=== PATIENT | female | born 1995 | race African-American/Black ===

== ENCOUNTER 2016-07-07 17:40 | Emergency (ER) | payer MEDICAID ==
[~2016-07-07] VITALS: Ht 157.5 cm; Wt 71.9 kg
[~2016-07-07 17:40] MED LIST: PREN29TA PO
[2016-07-07 17:46] VITALS: BP 99/72; PULSE 100; RESP 15; TEMP 98.6; O2SAT 100
[2016-07-07 18:14] LABS: BLOOD, URINE NEG (NEG); GLUCOSE,URINE NEG (NEG); KETONE, URINE NEG (NEG); NITRITE,URINE NEG (NEG)
[2016-07-07 18:27] LABS: URINE COLOR YELLOW (YELLW/STRAW)
[2016-07-07 18:28] LABS: COMMENT (UR) CULT NOT INDICATED; CULTURE IF INDICATED CULT NOT INDICATED; RBC, URINE 0-3 /hpf (0-3); SQUAMOUS EPITHELIAL CELL URINE 0-5 /hpf (0-5); WBC, URINE 0-2 /hpf (0-5)
[2016-07-07] MEDS ORDERED: LIDOCAINE HCL 1% 50 ML VIAL IM ONE (19:00)
[2016-07-07] MEDS ORDERED: cefTRIAXone 250 MG VIAL IM ONE (19:00)
[2016-07-07] MEDS ORDERED: AZITHROMYCIN PWD FOR SUSP 1 GM PACKET PO ONE (19:00)
[2016-07-07] MEDS ORDERED: MIRA33504 PO (19:02)
--- NOTE | 2016-07-07 19:09 | PD ---
HPI Chief Complaint: Complaint Time Seen by Provider: 19:04 Travel History International Travel<30 days: No Contact w/Intl Traveler<30days: No Traveled to known affect area: No History of Present Illness HPI 21-year-old female that presents to the ED for evaluation of bladder pain. Per patient she is about 4 months . Per patient she has had no issues with the . Per patient she's had a recent ultrasound that told her that she was a boy. Patient should having some vaginal discharge as well as constipation and dysuria and polyuria. She denies any chest pain or shortness of breath. No nausea or vomiting. Per patient the pain is mainly on the right side of the pelvic area. Patient denies any STD exposure. Patient denies any rectal pain. Patient hasn't taken anything for this other than some over-the- counter remedy for constipation. PFSH Past Medical History Anemia: Yes Asthma: Yes Anxiety: Yes Depression: Yes Heart Rhythm Problems: Yes (murmur) Cardiovascular Problems: Yes (HEART MURMUR) Diminished Hearing: No Immunizations Current: Yes Tetanus Vaccination: < 5 Years Influenza Vaccination: No ?: LMP: 03/14/16 : 4 Para: 1 Miscarriage: 1 : 1 Past Surgical History Section: Yes ( ) Gynecologic Surgery: Yes ( ) Family History Family Hypercholesterolemia: Yes Social History Alcohol Use: Yes (social) Tobacco Use: No Substance Use: No Allergies-Medications (Allergen,Severity, Reaction): Coded Allergies: *MDRO Multi-Drug Resistant Organism (Verified Allergy, Unknown, 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 HEAD: Atraumatic. Normocephalic. EYES: Pupils equal and round. No scleral icterus. No injection or drainage. ENT: No nasal bleeding or discharge. Mucous membranes pink and moist. NECK: Trachea midline. No JVD. CARDIOVASCULAR: Regular rate and rhythm. RESPIRATORY: No accessory muscle use. Clear to auscultation. Breath sounds equal bilaterally. GASTROINTESTINAL: Abdomen soft, non-tender, abdomen about 18 weeks. Hepatic and splenic margins not palpable. Pelvic exam: Done with female nurse present. Patient does have some whitish fluid coming out of the vaginal wall. Almost looks like milk. Patient has no cervical tenderness. No obvious vaginal mass. No lymphadenopathy. Adnexa cannot be felt but the patient does have a uterus. MUSCULOSKELETAL: Extremities without clubbing, cyanosis, or edema. No obvious deformities. Patient has full range of motion of the upper and lower extremities bilaterally. Pupils pulses bilaterally. NEUROLOGICAL: Awake and alert. No obvious cranial nerve deficits. Motor grossly within normal limits. Five out of 5 muscle strength in the arms and legs. Normal speech. PSYCHIATRIC: Appropriate mood and affect; insight and judgment normal. Data Data Last Documented VS Vital Signs Date Time Temp Pulse Resp B/P Pulse Ox O2 Delivery O2 Flow Rate FiO2 07/07/16 17:46 98.6 100 15 99/72 100 Orders Urinalysis - C+S If Indicated (07/07/16 17:55) Gc And Chlamydia Pcr (07/07/16 18:01) Wet Prep Profile (07/07/16 18:01) Ed Poc Ultrasound (07/07/16 ) Azithromycin Powd Pack (Zithromax Powd P (07/07/16 19:00) Ceftriaxone Inj (Rocephin Inj) (07/07/16 19:00) Lidocaine 1% Inj (50 Ml) (Xylocaine 1% I (07/07/16 19:00) Labs Laboratory Tests Test 07/07/16 07/07/16 17:58 18:30 Urine Color YELLOW Urine Turbidity SLIGHT Urine pH 7.0 Urine Specific Wells 1.016 Urine Protein NEG mg/dL Urine Glucose (UA) NEG mg/dL Urine Ketones NEG mg/dL Urine Occult Blood NEG Urine Nitrite NEG Urine Bilirubin NEG Urine Leukocyte Esterase NEG Urine RBC 0-3 /hpf Urine WBC 0-2 /hpf Urine Squamous Epithelial 0-5 /hpf Cells Urine Amorphous Sediment FEW Microscopic Urinalysis Comment CULT NOT INDICATED Clue Cells (Wet Prep) NONE SEEN Vaginal Trichomonas (Wet Prep) NONE SEEN Vaginal Yeast (Wet Prep) NONE SEEN MDM Medical Decision Making Medical Screen Exam Complete: Yes Emergency Medical Condition: Yes Medical Record Reviewed: Yes Interpretation(s) Urine negative for UTI. Wet prep was negative Differential Diagnosis IUP versus vaginal discharge versus vaginitis versus UTI versus and pelvic pain Narrative Course 21-year-old female that presents to the ED for evaluation of pelvic pain. Patient was properly examined and was found to have signs and symptoms consistent with what appears to be at this moment IUP with vaginal discharge. Patient also has sensation. Physical exam is reassuring. Bowels are within normal limits. My attending and I performed an ultrasound at the bedside that showed 17weeks intrauterine fetus with good heart tones. Pelvic exam did reveal some whitish milky discharge concerning for STD. Patient was given shot of Rocephin and azithromycin. Patient was instructed to follow closely with OB/ FEATHER BALER. In regards to constipation patient was given recommendation of increasing fluids and dietary fiber as well as given a prescription for lactulose which per up-to-date should be safe during . Told to stop taking any other medication. See ED worsening symptoms. Diagnosis Primary Impression: Vaginal discharge Additional Impressions: Constipation Qualified Code: K59.00 - Constipation, unspecified constipation type Qualified Code: Z3A.17 - 17 weeks gestation of Patient Instructions: General Instructions Additional Instructions: Take medication as prescribed. Increased or liquids and fiber. Follow with [facility] [employer]. See ED for any worsening symptoms. Only use a prescription if absolutely needed for constipation management. Med/Other Pt SpecificInfo: Prescription(s) given Scripts Lactulose (Encephalopathy) Liq (Lactulose Liq)19 Gm/15 Ml Soln20 Mg PO Q6HR PRN (CONSTIPATION) 7 Days Prov:Kyle Tirado MD 07/07/16 Disposition: 01 DISCHARGE HOME Condition: Stable Stefan Masters Jul 07, 2016 19:09
[2016-07-07] MEDS ORDERED: LACT10SO27 PO (19:12)
[2016-07-07 19:27] VITALS: BP 101/84; PULSE 90; RESP 18; O2SAT 100
[2016-07-08 01:45] LABS: CHLAMYDIA PCR NOT DETECTED (NOT DETECT); NEISSERIA PCR NOT DETECTED (NOT DETECT)
== END 2016-07-07 19:39 | disposition home or self-care (01) ==
LOC: PHEFT 17:40 → PHED 19:39
DX: O26.92 Pregnancy related conditions, unspecified, second trimester (principal); N89.8 Other specified noninflammatory disorders of vagina; K59.00 Constipation, unspecified; Z3A.17 17 weeks gestation of pregnancy
CPT/HCPCS: 81001; 87210; 87491; 87591; 99283

== ENCOUNTER 2016-07-25 11:29 | Emergency (ER) | payer MEDICAID ==
[~2016-07-25 11:29] MED LIST changes: +LACT10SO27 PO
[2016-07-25 11:30] VITALS: BP 131/72; PULSE 111; RESP 15; TEMP 98.1; O2SAT 98
[2016-07-25] MEDS ORDERED: ACETAMINOPHEN 500 MG CPLT PO ONE (12:30)
--- NOTE | 2016-07-25 12:37 | PD ---
HPI Chief Complaint I have migraine headaches Date Seen: Jul 25, 2016 Time Seen: 12:20 Travel History International Travel<30 Days: No Contact w/Intl Traveler<30Days: No Known Affected Area: No History of Present Illness HPI 21-year-old 001 at 20 weeks of gestation, E DD 12/12/16, patient presents to OB ED complaining of episode of migraine headaches, she denies cramping, contraction, vaginal bleeding, leakage of fluid. She reports presence of movements. care is with Dr Taylor, care is significant for migraine headaches and anxiety. Para: 1 : 2 Miscarriage: 0 : 0 History Past Medical History Narrative Medical Anxiety and migraine headaches Obstetric History Obstetric History Spontaneous vaginal delivery times one Past Surgical History Narrative Surgical Denies Surgical History: No Previous Surgery Family History Narrative Family History Grandmother with hypertension and diabetes Social History Alcohol Use: No Tobacco Use: No Substance Abuse: No Allergies-Medications (Allergen,Severity, Reaction): Coded Allergies: *MDRO Multi-Drug Resistant Organism (Verified Allergy, Unknown, 07/25/16) MRSA Home Meds Active Scripts Vit-Iron Carbonyl ( Plus Iron 29-1 mg)1 Tab Tab1 Tab PO DAILY #30 TAB Ref 0 Prov:Alena Aguilar 05/19/16 Discontinued Scripts Lactulose (Encephalopathy) Liq (Lactulose Liq)19 Gm/15 Ml Soln20 Mg PO Q6HR PRN (CONSTIPATION) 7 Days Prov:Kyle Tirado MD 07/07/16 Review of Systems Except as stated in HPI: all other systems reviewed are Neg HENT: Headaches (migraine headaches) Physical Exam Narrative GENERAL: Well-nourished, well-developed patient. SKIN: Warm and dry. HEAD: Normocephalic and atraumatic. EYES: No scleral icterus. No injection or drainage. ENT: No nasal drainage noted. Mucous membranes pink. Airway patent. NECK: Supple, trachea midline. No JVD. CARDIOVASCULAR: Regular rate and rhythm without murmurs, gallops, or rubs. RESPIRATORY: Breath sounds equal bilaterally. No accessory muscle use. BREASTS: Bilateral exam showed no masses , no retractions, no nipple discharge. ABDOMEN/GI: Abdomen soft, gravid, non-tender, bowel sounds present, no rebound, no guarding Gravid to 20 weeks size Fundal Height: 20 cm GENITOURINARY: External Genitalia: intact and normal in appearance BUS glands: Normal Cervix: closed, long, posterior Dilatation: Closed Effacement: 80% Station: -3 Presentation: Cephalic Membranes: Intact Uterine Contractions: Heart Tones by Doppler is 150's: EXTREMITIES: No cyanosis or edema. BACK: Nontender without obvious deformity. No CVA tenderness. NEUROLOGICAL: Awake and alert. Motor and sensory grossly within normal limits. Five out of 5 muscle strength in all muscle groups. Normal speech. Data Data Vital Signs Reviewed: Yes Orders Vital Signs (Adult) .ON ADMISSION (07/25/16 12:21) ^ Labor Status (07/25/16 12:21) ^ Non Stress Test (07/25/16 12:21) ^ Hydration (07/25/16 12:21) Acetaminophen (Tylenol) (07/25/16 12:30) MDM Medical Record Reviewed: Yes Diagnosis Diagnosis: Primary Impression: 20 weeks gestation of Additional Impression: Migraine headache Disposition: DISCHARGE HOME Condition: Stable Patient Instructions: General Instructions Additional Instructions: Patient is given a prescription for Tylenol 650 mg orally every 6 hours as needed for headaches, she is instructed to return to labor and delivery if increased symptoms, cramping, contractions, leakage of fluids, vaginal bleeding or decreased movements. Drink plenty of fluids. Monitor kick counts. Keep your office appointment as scheduled. Take your medication as prescribed. Departure Forms: Tests/Procedures Avila Blank MD Jul 25, 2016 12:37
== END 2016-07-25 12:46 | disposition home or self-care (01) ==
LOC: HOBED 11:29
DX: O26.892 Other specified pregnancy related conditions, second trimester (principal); G43.909 Migraine, unspecified, not intractable, without status migrainosus; Z3A.20 20 weeks gestation of pregnancy
CPT/HCPCS: 99284

== ENCOUNTER 2017-03-16 06:10 | Emergency (ER) | payer MEDICAID ==
[~2017-03-16] VITALS: Ht 157.5 cm; Wt 71.0 kg
[~2017-03-16 06:10] MED LIST changes: -LACT10SO27 PO
[2017-03-16 06:13] VITALS: BP 121/56; PULSE 90; RESP 16; TEMP 98.9; O2SAT 99
[2017-03-16] MEDS ORDERED: ERYTOIN10 RIGHT EYE (07:13)
--- NOTE | 2017-03-16 07:13 | PD ---
HPI . right eye infection Chief Complaint: Eye Problems/Injury Time Seen by Provider: 07:12 Travel History International Travel<30 days: No Contact w/Intl Traveler<30days: No Traveled to known affect area: No History of Present Illness HPI 21-year-old female here with complaints of right eye infection. Patient tells me that she frequently gets bacterial conjunctivitis and her symptoms go same. She is requesting antibiotic treatment for this. She denies any vision changes. She admits to some slight drainage and tells me that her symptoms started yesterday. She has no other complaints. PFSH Past Medical History Anemia: Yes Asthma: Yes Anxiety: Yes Depression: Yes Heart Rhythm Problems: Yes (murmur) Cardiovascular Problems: Yes (HEART MURMUR) Developmental Delay: No Diminished Hearing: No Immunizations Current: Yes ?: Not LMP: 02/15/17 : 4 Para: 1 Miscarriage: 1 : 1 Past Surgical History Section: Yes ( ) Gynecologic Surgery: Yes ( ) Family History Family Hypercholesterolemia: Yes Social History Alcohol Use: No Tobacco Use: No Substance Use: No Allergies-Medications (Allergen,Severity, Reaction): Coded Allergies: *MDRO Multi-Drug Resistant Organism (Verified Allergy, Unknown, 03/16/17) MRSA Reported Meds & Prescriptions Reported Meds & Active Scripts Active No Active Prescriptions or Reported Medications Review of Systems General / Constitutional: No: Fever Eyes: Positive: Redness, Tearing, No: Visual changes HENT: No: Headaches Cardiovascular: No: Chest Pain or Discomfort Respiratory: No: Shortness of Breath Gastrointestinal: No: Abdominal Pain Genitourinary: No: Dysuria Musculoskeletal: No: Pain Skin: No Rash Neurologic: No: Weakness Psychiatric: No: Depression Endocrine: No: Polydipsia Hematologic/Lymphatic: No: Easy Bruising Physical Exam Narrative GENERAL: AAO x 3, no acute distress, Well-nourished, well-developed patient. SKIN: Warm and dry. No visible rashes or bruising. HEAD: Normocephalic and atraumatic. EYES: No scleral icterus. No injection or drainage. EOM intact, PERRLA, mild erythema of right eye ENT: No nasal drainage noted. Mucous membranes pink. Airway patent. NECK: Supple, trachea midline. No JVD. CARDIOVASCULAR: Regular rate and rhythm without murmurs, gallops, or rubs. RESPIRATORY: Breath sounds equal bilaterally. No accessory muscle use. No rhonchi or rales. GASTROINTESTINAL: visual inspection normal EXTREMITIES: No cyanosis or edema. BACK: No obvious deformity. NEURO: CN II-12 intact, PSYCH: AAO x 3, normal affect. Data Data Last Documented VS Vital Signs Date Time Temp Pulse Resp B/P (MAP) Pulse Ox O2 Delivery O2 Flow Rate FiO2 03/16/17 06:13 98.9 90 16 121/56 (77) 99 Orders Orders Proparacaine 0.5% Opth Soln (Alcaine 0.5 (03/16/17 07:15) MDM Medical Decision Making Medical Screen Exam Complete: Yes Emergency Medical Condition: Yes Medical Record Reviewed: Yes Differential Diagnosis bacterial conjunctivitis, less likely fb of eye, less likely acute angle glaucoma Narrative Course 21 yr old female here requesting antibiotics for bacterial conjunctivitis. She has had this in the past. On exam there is only some slight erythema of right eye. Patient is and I offered eye staining. She declined stating this is her normal bacterial conjunctivitis. Advised f/u with ophthalmology Diagnosis Primary Impression: Acute bacterial conjunctivitis of right eye Referrals: Charge Nurse Patient Instructions: General Instructions Additional Instructions: Please return to emergency department if your symptoms return or worsen. Follow up with your primary care provider. Take medications as prescribed. Med/Other Pt SpecificInfo: Prescription(s) given Scripts Erythromycin Opth Oint (Erythromycin Opth Oint) 5 Mg/Gm Oint 1 APPLIC RIGHT EYE BID for Infection for 5 Days, #1 TUBE 0 Refills Prov: Kalpana Carmona MD 03/16/17 Disposition: 01 DISCHARGE HOME Condition: Stable Miladys Roach Mar 16, 2017 07:13
[2017-03-16] MEDS ORDERED: PROPARACAINE HCL 0.5% OPHT SOLN 15 ML BTL EACH EYE ONE (07:15)
== END 2017-03-16 07:32 | disposition home or self-care (01) ==
LOC: NEPD 06:10
DX: H10.31 Unspecified acute conjunctivitis, right eye (principal)
CPT/HCPCS: 99283

== ENCOUNTER 2017-03-29 18:41 | Emergency (ER) | payer MEDICAID ==
[~2017-03-29] VITALS: Ht 157.5 cm; Wt 70.0 kg
[~2017-03-29 18:41] MED LIST changes: +ERYTOIN10 RIGHT EYE; -PREN29TA PO
[2017-03-29 18:43] VITALS: BP 135/62; PULSE 115; RESP 16; TEMP 98.2; O2SAT 98
[2017-03-29] MEDS ORDERED: PERM5CRE11 TOPICAL (19:35)
--- NOTE | 2017-03-29 19:35 | PD ---
HPI Chief Complaint: Hotel Reservationist Problem/Complaint Time Seen by Provider: 19:32 Travel History International Travel<30 days: No Contact w/Intl Traveler<30days: No Traveled to known affect area: No History of Present Illness HPI 21-year-old female presents to emergency department for evaluation of skin lesions. They're pruritic in nature. Patient's children and best friend have been diagnosed with scabies. She was advised to come and get treatment. Denies any other new exposures. No fever or chills. In addition to this, the patient states that her boyfriend recently tested positive for gonorrhea and chlamydia. She would like treated for this. She denies any abdominal pain. She has had no increase or change in vaginal discharge. She has no other symptoms to report. PFSH Past Medical History Anemia: Yes Asthma: Yes Anxiety: Yes Depression: Yes Heart Rhythm Problems: Yes (murmur) Cardiovascular Problems: Yes (HEART MURMUR) Developmental Delay: No Diminished Hearing: No Immunizations Current: Yes ?: Not : 4 Para: 1 Miscarriage: 1 : 1 Past Surgical History Section: Yes ( ) Gynecologic Surgery: Yes ( ) Family History Family Hypercholesterolemia: Yes Social History Alcohol Use: No Tobacco Use: No Substance Use: No Allergies-Medications (Allergen,Severity, Reaction): Coded Allergies: *MDRO Multi-Drug Resistant Organism (Verified Allergy, Unknown, 03/16/17) MRSA Reported Meds & Prescriptions Reported Meds & Active Scripts Active Elimite Topical (Permethrin) 5% Cream 1 Applic TOPICAL ONCE Erythromycin Opth Oint 5 Mg/Gm Oint 1 Applic RIGHT EYE BID 5 Days Review of Systems Except as stated in HPI: all other systems reviewed are Neg Physical Exam Narrative GENERAL: Well-nourished, well-developed female patient, in no acute distress SKIN: Focused skin assessment warm/dry. Papules scattered on the upper extremities and in the webbing of the bilateral hands. Also has some on her thighs. HEAD: Normocephalic. EYES: No scleral icterus. No injection or drainage. NECK: Supple, trachea midline. No JVD or lymphadenopathy. CARDIOVASCULAR: Regular rate and rhythm without murmurs, gallops, or rubs. RESPIRATORY: Breath sounds equal bilaterally. No accessory muscle use. GASTROINTESTINAL: Abdomen soft, non-tender, nondistended. No guarding. No rebound tenderness. MUSCULOSKELETAL: No cyanosis, or edema. BACK: Nontender without obvious deformity. No CVA tenderness. Data Data Last Documented VS Vital Signs Date Time Temp Pulse Resp B/P (MAP) Pulse Ox O2 Delivery O2 Flow Rate FiO2 03/29/17 18:43 98.2 115 16 135/62 (86) 98 Orders Orders Ceftriaxone Inj (Rocephin Inj) (03/29/17 19:45) Azithromycin (Zithromax) (03/29/17 19:45) MDM Medical Decision Making Medical Screen Exam Complete: Yes Emergency Medical Condition: Yes Medical Record Reviewed: Yes Differential Diagnosis Scabies versus contact dermatitis versus folliculitis STD versus STD exposure versus normal exam Narrative Course 21-year-old female presents to emergency department for evaluation. Patient is requesting treatment for scabies. Physical exam is consistent with a scabies infection. Patient would also like treated for STD as her boyfriend has been recently diagnosed with chlamydia and gonorrhea. She tells me she is not having any symptoms. Pelvic exam is not done at this time for that reason however I will treat her empirically based on her exposure. I counseled her on safe sex practices and importance of partners being treated. She agrees to return immediately with any acute worsening of symptoms. Diagnosis Primary Impression: Scabies Additional Impression: STD exposure Referrals: [employer] Technician Primary Care Physician Patient Instructions: General Instructions, Safe Sex (ED), Scabies (ED) Additional Instructions: Follow up with a primary care provider Wash all clothing and bedding in hot water and dry on the hottest setting Follow up with nonprofit manager Condom prophylaxis Return to ED with acute worsening of symptoms Med/Other Pt SpecificInfo: Prescription(s) given Scripts Permethrin Topical (Elimite Topical) 5% Cream 1 APPLIC TOPICAL ONCE for Scabies, #1 TUBE 1 Refill Prov: Monica Gupta 03/29/17 Disposition: 01 DISCHARGE HOME Condition: Stable Monica Gupta Mar 29, 2017 19:35
[2017-03-29] MEDS ORDERED: cefTRIAXone 250 MG VIAL IM ONE (19:45)
[2017-03-29] MEDS ORDERED: AZITHROMYCIN 250 MG TAB PO ONE (19:45)
== END 2017-03-29 19:54 | disposition home or self-care (01) ==
LOC: NEPK 18:41
DX: B86 Scabies (principal); Z20.2 Contact with and (suspected) exposure to infections with a predominantly sexual mode of transmission; J45.909 Unspecified asthma, uncomplicated; D64.9 Anemia, unspecified; F41.9 Anxiety disorder, unspecified
CPT/HCPCS: 99282; J0696

== ENCOUNTER 2017-05-09 10:28 | Emergency (ER) | payer MEDICAID ==
[~2017-05-09] VITALS: Ht 157.5 cm; Wt 70.0 kg
[~2017-05-09 10:28] MED LIST changes: +PERM5CRE11 TOPICAL
[2017-05-09 10:31] VITALS: BP 157/68; PULSE 84; RESP 16; TEMP 98.8; O2SAT 98
--- NOTE | 2017-05-09 13:17 | PD ---
HPI Chief Complaint: Or Director Problem/Complaint Time Seen by Provider: 13:04 Travel History International Travel<30 days: No Contact w/Intl Traveler<30days: No Traveled to known affect area: No History of Present Illness HPI 22-year-old female presents to emergency department complaining of sore throat for 3 days. States that she has not been around anybody sick but she is having trouble swallowing because of the pain and has some mild lymph node pain. Patient denies fever, chills, chest pain, short of breath, abdominal pain, dysuria. Patient also denies rhinorrhea, otorrhea. In addition patient also complains of a vaginal discharge for about a week. States that there is an odor and describes it as yellow she also has some pelvic cramping. States that she only has one partner but she is unsure if he is monogamous. Patient does not think she is and her last period was May 04. States she had an episode of nausea last week but this subsided on its own. Denies vomiting or diarrhea. Denies rash. Denies chronic medical issues are chronic medication use. She does not use contraception. Denies blurred vision, eye irritation, joint pain. Denies dyspareunia. PFSH Past Medical History Anemia: Yes Asthma: Yes Anxiety: Yes Depression: Yes Heart Rhythm Problems: Yes (murmur) Cardiovascular Problems: Yes (HEART MURMUR) Developmental Delay: No Diminished Hearing: No Immunizations Current: Yes ?: Not LMP: 05/04/17 : 4 Para: 1 Miscarriage: 1 : 1 Past Surgical History Section: Yes ( ) Gynecologic Surgery: Yes ( ) Family History Family Hypercholesterolemia: Yes Social History Alcohol Use: No Tobacco Use: No Substance Use: No Allergies-Medications (Allergen,Severity, Reaction): Coded Allergies: *MDRO Multi-Drug Resistant Organism (Verified Allergy, Unknown, 03/16/17) MRSA Reported Meds & Prescriptions Reported Meds & Active Scripts Active Metronidazole 500 Mg Tab 500 Mg PO BID 10 Days Elimite Topical (Permethrin) 5% Cream 1 Applic TOPICAL ONCE Erythromycin Opth Oint 5 Mg/Gm Oint 1 Applic RIGHT EYE BID 5 Days Review of Systems Except as stated in HPI: all other systems reviewed are Neg Physical Exam Narrative GENERAL: Well-nourished SKIN: Focused skin assessment warm/dry. HEAD: Atraumatic. Normocephalic. EYES: Pupils equal and round. No scleral icterus. No injection or drainage. ENT: No nasal bleeding or discharge. Mucous membranes pink and moist. THROAT: Mild pharyngeal injection. No exudates, or tonsillar hypertrophy. Airway is patent. Postnasal drip NECK: Trachea midline. No JVD. Mild to palpation right anterior cervical lymph node. CARDIOVASCULAR: Regular rate and rhythm. No murmur appreciated. RESPIRATORY: No accessory muscle use. Clear to auscultation. Breath sounds equal bilaterally. GASTROINTESTINAL: Abdomen soft, non-tender, nondistended. Hepatic and splenic margins not palpable. No tenderness to palpation GENITOURINARY: Normal external genitalia without lesions or erythema. Vaginal vault without blood. Yellow and green discharge with foul odor. Cervical os was closed without drainage. No cervical motion tenderness. Uterus nontender and nonenlarged. Bilateral adnexa nontender without masses. BACK: No CVA tenderness. No rash. No point tenderness on palpation of the spine. MUSCULOSKELETAL: No obvious deformities. No clubbing. No cyanosis. No edema. NEUROLOGICAL: Awake and alert. No obvious cranial nerve deficits. Motor grossly within normal limits. Normal speech. PSYCHIATRIC: Appropriate mood and affect; insight and judgment normal. Data Data Last Documented VS Vital Signs Date Time Temp Pulse Resp B/P (MAP) Pulse Ox O2 Delivery O2 Flow Rate FiO2 05/09/17 14:54 05/09/17 10:31 98.8 84 16 98 Orders Orders Gc And Chlamydia Pcr (05/09/17 13:05) Wet Prep Profile (05/09/17 13:05) Urinalysis - C+S If Indicated (05/09/17 13:05) Ed Urine Pregnancytest Poc (05/09/17 13:05) Group A Rapid Strep Screen (05/09/17 13:24) Strep Culture (Group A) (05/09/17 13:50) Ed Discharge Order (05/09/17 14:39) Labs Laboratory Tests Test 05/09/17 13:15 05/09/17 13:22 Urine Color YELLOW Urine Turbidity CLEAR Urine pH 6.5 Urine Specific [place] 1.015 Urine Protein NEG mg/dL Urine Glucose (UA) NEG mg/dL Urine Ketones NEG mg/dL Urine Occult Blood NEG Urine Nitrite NEG Urine Bilirubin NEG Urine Urobilinogen LESS THAN 2.0 MG/DL Urine Leukocyte Esterase NEG Urine RBC LESS THAN 1 /hpf Urine WBC LESS THAN 1 /hpf Urine Squamous Epithelial Cells 2 /hpf Microscopic Urinalysis Comment CULT NOT INDICATED Clue Cells (Wet Prep) PRESENT Vaginal Trichomonas (Wet Prep) NONE SEEN Vaginal Yeast (Wet Prep) NONE SEEN MDM Medical Decision Making Medical Screen Exam Complete: Yes Emergency Medical Condition: Yes Differential Diagnosis Strep pharyngitis versus viral pharyngitis versus lytic pharyngitis Bacterial vaginosis versus glabrous gonorrhea versus pelvic inflammatory disease versus vaginal candidiasis Narrative Course 22-year-old female presents to emergency department complaining of sore throat for 3 days. States that she has not been around anybody sick but she is having trouble swallowing because of the pain and has some mild lymph node pain. Patient denies fever, chills, chest pain, short of breath, abdominal pain, dysuria. Patient also denies rhinorrhea, otorrhea. In addition patient also complains of a vaginal discharge for about a week. States that there is an odor and describes it as yellow she also has some pelvic cramping. States that she only has one partner but she is unsure if he is monogamous. Patient does not think she is and her last period was May 04. States she had an episode of nausea last week but this subsided on its own. Denies vomiting or diarrhea. Denies rash. Denies chronic medical issues are chronic medication use. She does not use contraception. Denies blurred vision, eye irritation, joint pain. Denies dyspareunia. Pelvic exam demonstrates a yellow greenish frothy malodorous discharge. No cervical motion tenderness, cervix nonfriable without obvious discharge. Vaginal and throat cultures obtained. Patient understands the importance of follow-up with her primary care physician. Antibiotics as prescribed. Patient to return with worsening symptoms Diagnosis Primary Impression: Bacterial vaginosis Additional Impression: Allergic pharyngitis Referrals: Primary Care Physician Additional Instructions: Return to primary care physician within 2 days. Medications as prescribed. Use a water gargles for throat pain Return to the emergency department. Return to ER if symptoms persist or worsen. May try [id number] Benadryl, Zyrtec, Laura, or Claritin for sore throat. Use as directed for 7 days. Scripts Metronidazole (Metronidazole) 500 Mg Tab 500 MG PO BID for Infection for 10 Days, #20 TAB 0 Refills Prov: Anali Lopez MD 05/09/17 Disposition: 01 DISCHARGE HOME Condition: Stable Elizabeth Martin May 09, 2017 13:17
[2017-05-09 13:46] LABS: BLOOD, URINE NEG (NEG); GLUCOSE,URINE NEG (NEG); KETONE, URINE NEG (NEG); NITRITE,URINE NEG (NEG); PH, URINE 6.5 (5.0-8.5); SQUAMOUS EPITHELIAL CELL URINE 2 /hpf (0-5); URINE COLOR YELLOW (YELLW/STRAW)
[2017-05-09 13:54] LABS: COMMENT (UR) CULT NOT INDICATED; CULTURE IF INDICATED CULT NOT INDICATED
[2017-05-09] MEDS ORDERED: METR1TAB76 PO (14:09)
[2017-05-09 17:46] LABS: CHLAMYDIA PCR NOT DETECTED (NOT DETECT); NEISSERIA PCR NOT DETECTED (NOT DETECT)
== END 2017-05-09 15:15 | disposition home or self-care (01) ==
LOC: NEPD 10:28
DX: N76.0 Acute vaginitis (principal); J02.9 Acute pharyngitis, unspecified
CPT/HCPCS: 81001; 84703; 87081; 87210; 87491; 87591; 87880; 99284

== ENCOUNTER 2017-05-20 17:56 | Emergency (ER) | payer MEDICAID ==
[~2017-05-20] VITALS: Ht 157.5 cm; Wt 75.0 kg
[~2017-05-20 17:56] MED LIST changes: +METR1TAB76 PO
[2017-05-20 17:58] VITALS: BP 131/64; PULSE 82; RESP 14; TEMP 98.9; O2SAT 100
[2017-05-20] MEDS ORDERED: POLY10O LEFT EYE (20:23)
--- NOTE | 2017-05-20 20:27 | PD ---
HPI Chief Complaint: Eye Problems/Injury Time Seen by Provider: 20:09 Travel History International Travel<30 days: No Contact w/Intl Traveler<30days: No Traveled to known affect area: No History of Present Illness HPI 22-year-old black female presents to emergency department complains of left eye drainage, matting and irritation. She states that she woke this morning and had progressive symptoms. She denies any direct trauma. Positive photophobia. No glasses or contacts. History of conjunctivitis in the past. Feels similar. No alleviating factors. Worsened by light. PFSH Past Medical History Anemia: Yes Asthma: Yes Anxiety: Yes Depression: Yes Heart Rhythm Problems: Yes (murmur) Cardiovascular Problems: Yes (HEART MURMUR) Developmental Delay: No Diminished Hearing: No Immunizations Current: Yes ?: Not LMP: 05/04/17 : 4 Para: 1 Miscarriage: 1 : 1 Past Surgical History Section: Yes ( ) Gynecologic Surgery: Yes ( ) Family History Family Hypercholesterolemia: Yes Social History Alcohol Use: No Tobacco Use: No Substance Use: No Allergies-Medications (Allergen,Severity, Reaction): Coded Allergies: *MDRO Multi-Drug Resistant Organism (Verified Allergy, Unknown, 05/20/17) MRSA Reported Meds & Prescriptions Reported Meds & Active Scripts Active Polytrim Opth Drops (Polymyxin/Trimethoprim Sulfate) 10,000-0.1 Unit/Ml-% Soln 1 Drop LEFT EYE Q6HR 7 Days Metronidazole 500 Mg Tab 500 Mg PO BID 10 Days Elimite Topical (Permethrin) 5% Cream 1 Applic TOPICAL ONCE Erythromycin Opth Oint 5 Mg/Gm Oint 1 Applic RIGHT EYE BID 5 Days Review of Systems General / Constitutional: No: Fever Eyes: Positive: Photophobia, Drainage, Redness, No: Blurred Vision, Pain, Visual changes HENT: No: Headaches Cardiovascular: No: Chest Pain or Discomfort Respiratory: No: Shortness of Breath Gastrointestinal: No: Abdominal Pain Genitourinary: No: Dysuria Musculoskeletal: No: Pain Skin: No Rash Neurologic: No: Weakness Psychiatric: No: Depression Endocrine: No: Polydipsia Hematologic/Lymphatic: No: Easy Bruising Physical Exam Narrative GENERAL: Well-developed, well-nourished in no acute distress. Nontoxic appearing. HEAD: Normocephalic, atraumatic. EYES: Pupils equal round and reactive. Extraocular motions intact. No scleral icterus. No injection or drainage in the right eye. Left eye is injected and has slight mucoid drainage. ENT: TMs clear without erythema. The external auditory canals clear. Nose: clear . Posterior pharynx is pink and moist. No tonsillar edema or exudate. Uvula midline. Airway patent. NECK: Trachea midline.Supple, nontender, moves head freely. No central bony tenderness or spasm. CARDIOVASCULAR: Regular rate and rhythm without murmurs, gallops, or rubs. RESPIRATORY: Clear to auscultation. Breath sounds equal bilaterally. No wheezes , rales, or rhonchi. GASTROINTESTINAL: Abdomen soft, non-tender, nondistended. No hepato-splenomegaly , or palpable masses. No guarding. EXTREMITIES: No clubbing, cyanosis, or edema. No joint tenderness, effusion, or edema noted. BACK: Nontender without deformity or crepitance. No flank tenderness. Data Data Last Documented VS Vital Signs Date Time Temp Pulse Resp B/P (MAP) Pulse Ox O2 Delivery O2 Flow Rate FiO2 05/20/17 17:58 98.9 82 14 131/64 (86) 100 Orders Orders Ed Discharge Order (05/20/17 20:23) MDM Medical Decision Making Medical Screen Exam Complete: Yes Emergency Medical Condition: Yes Medical Record Reviewed: Yes Differential Diagnosis MDM: High Differential diagnoses: Acute conjunctivitis (bacterial, viral, allergic, traumatic), glaucoma, iritis, traumatic globe injury, foreign body, corneal abrasion, corneal ulcer, diabetic retinopathy, photokeratitis, herpes keratitis , CMV retinitis Narrative Course This is conjunctivitis Diagnosis Primary Impression: Acute conjunctivitis of left eye Qualified Codes: H10.32 - Unspecified acute conjunctivitis, left eye Patient Instructions: General Instructions Departure Forms: Tests/Procedures, Work Release Special Instructions: No work 05/21/17 Additional Instructions: Rest. Wash eyelashes with baby shampoo 3 times daily. Warm compresses. Polytrim ophthalmic drops. Followup with an eye doctor in one week. Follow-up with a medical doctor one week. Return to the ER if any problems. Med/Other Pt SpecificInfo: Prescription(s) given Scripts Polymyxin B-Trimethoprim Opth Drops (Polytrim Opth Drops) 10,000-0.1 Unit/Ml-% Soln 1 DROP LEFT EYE Q6HR for Mgmt Bacterial Infection for 7 Days, #1 BOTTLE 0 Refills Prov: Ritu Rodriguez DO 05/20/17 Disposition: 01 DISCHARGE HOME Condition: Stable Mika Wagner May 20, 2017 20:27
== END 2017-05-20 20:31 | disposition home or self-care (01) ==
LOC: NEPK 17:56
DX: H10.32 Unspecified acute conjunctivitis, left eye (principal)
CPT/HCPCS: 99283

== ENCOUNTER 2017-11-09 10:29 | Emergency (ER) | payer MEDICAID ==
[~2017-11-09 10:29] MED LIST changes: +POLY10O LEFT EYE
[2017-11-09 10:31] VITALS: BP 137/66; PULSE 138; RESP 18; TEMP 99.4
[2017-11-09 10:45] VITALS: PULSE 150; O2SAT 95
[2017-11-09] MEDS ORDERED: IBUPROFEN 800 MG TAB PO ONE (10:45)
--- NOTE | 2017-11-09 10:50 | PD ---
HPI Chief Complaint: Injury Time Seen by Provider: 10:37 Travel History International Travel<30 days: No Contact w/Intl Traveler<30days: No Traveled to known affect area: No History of Present Illness HPI 22-year-old female presents to emergency department with complaint of right elbow pain after slamming it in a car door approximately 30 minutes ago. Denies paresthesias, loss of sensation to the affected extremity. Reports decreased range of motion at the elbow. Has not taken any medication or try any treatments to alleviate her symptoms. Pain 10/10. Describes as throbbing. Aggravated with palpation and movement. Better at rest. No primary care provider. No known allergies. History of anemia and anxiety. Has no other medical complaints. No other modifying factors or associated signs and symptoms. PFSH Past Medical History Anemia: Yes Asthma: Yes Anxiety: Yes Depression: Yes Heart Rhythm Problems: Yes (murmur) Cardiovascular Problems: Yes (HEART MURMUR) Developmental Delay: No Diminished Hearing: No Immunizations Current: Yes Tetanus Vaccination: Unknown Influenza Vaccination: No ?: Not : 4 Para: 1 Miscarriage: 1 : 1 Past Surgical History Section: Yes ( ) Gynecologic Surgery: Yes ( ) Family History Family Hypercholesterolemia: Yes Social History Alcohol Use: No Tobacco Use: No Substance Use: No Allergies-Medications (Allergen,Severity, Reaction): Coded Allergies: *MDRO Multi-Drug Resistant Organism (Verified Allergy, Unknown, 11/09/17) MRSA Reported Meds & Prescriptions Reported Meds & Active Scripts Active Ibuprofen 800 Mg Tab 800 Mg PO Q6HR PRN Review of Systems Except as stated in HPI: all other systems reviewed are Neg Physical Exam Narrative GENERAL: Well-nourished, well-developed black female patient, in no acute distress SKIN: Warm and dry. HEAD: Atraumatic. Normocephalic. EYES: Pupils equal and round. No scleral icterus. No injection or drainage. ENT: Mucosa pink and moist. Airway patent. NECK: Trachea midline. CARDIOVASCULAR: Tachycardic rate. RESPIRATORY: No accessory muscle use. GASTROINTESTINAL: Rounded. MUSCULOSKELETAL: Right elbow with mild edema noted to the lateral aspect; without erythema; with tenderness on palpation; unable to assess range of motion and supervisor cold rolling strength secondary to patient guarding and refusing to move her arm; sensory intact; 2+ radial pulse. Right Upper extremity supple and nontense with 2+ radial pulse and sensory intact. No obvious deformities. No clubbing. No cyanosis. No edema. NEUROLOGICAL: Awake and alert. Oriented 3. No obvious cranial nerve deficits. Motor grossly within normal limits. Normal speech. PSYCHIATRIC: Appropriate mood and affect; insight and judgment normal. Data Data Last Documented VS Vital Signs Date Time Temp Pulse Resp B/P (MAP) Pulse Ox O2 Delivery O2 Flow Rate FiO2 11/09/17 10:45 150 95 11/09/17 10:31 99.4 18 137/66 (89) Orders Orders Elbow, Complete (4 Vws) (11/09/17 10:43) Ice/Cold Pack (11/09/17 10:43) Ibuprofen (Motrin) (11/09/17 10:45) Ed Discharge Order (11/09/17 12:38) Splint Or Brace Apply/Monitor (11/09/17 12:39) MDM Medical Decision Making Medical Screen Exam Complete: Yes Emergency Medical Condition: Yes Medical Record Reviewed: Yes Differential Diagnosis Elbow fracture, elbow dislocation, elbow contusion Narrative Course 22-year-old female with right elbow injury from slamming it in a car door. Patient's heart rate is elevated and she reports that it will be elevated because she has anxiety. She says she does not want anything for her anxiety, as she will try to calm herself. Right elbow x-ray, ibuprofen, ice pack ordered. 1235: Right elbow x-ray concluded: Elbow X-Ray 11/09/17 1043 Signed Impressions: Service Date/Time: Thursday, November 09, 2017 11:02 - CONCLUSION: 1. No acute fracture or dislocation. Dennys Casillas MD Patient provided a copy of the x-ray report. Heart rate recheck 97 bpm. Ibuprofen prescribed for Home. Instructed patient to follow up with primary care provider. Patient verbalizes understanding and agreement with treatment plan. Patient is medically cleared and stable for discharge. Discussed reasons to return to the emergency department. Patient agrees with treatment plan. The patients vital signs are stable and the patient is stable for outpatient follow-up and treatment. Patient discharged home, stable and in no acute distress. Diagnosis Primary Impression: Contusion of right elbow Qualified Codes: S50.01XA - Contusion of right elbow, initial encounter Referrals: [facility] Primary Care Physician Patient Instructions: Contusion in Adults (ED), Elbow Sprain (ED), General Instructions Additional Instructions: Ibuprofen or Tylenol as directed and as needed for pain and inflammation Rest the affected extremity Arm sling as needed for support Apply ice to affected area Avoid elbow pressure by not leaning or placing your weight on your elbow to rise from a lying or sitting position Follow-up with primary care provider Return to the emergency department immediately with worsening of symptoms Med/Other Pt SpecificInfo: Prescription(s) given Scripts Ibuprofen (Ibuprofen) 800 Mg Tab 800 MG PO Q6HR Y for PAIN, #30 TAB 0 Refills Prov: Hillary White 11/09/17 Disposition: 01 DISCHARGE HOME Condition: Stable Hillary White November 09, 2017 10:50
--- NOTE | 2017-11-09 11:36 | RADRPT ---
EXAM DATE/TIME: 11/09/2017 11:02 [facility] COMPARISON: No previous studies available for comparison. INDICATIONS : Right elbow pain due to door closing on it. MEDICAL HISTORY : None. SURGICAL HISTORY : None. ENCOUNTER: Initial ACUITY: 1 day PAIN SCORE: 8/10 LOCATION: Right Elbow. FINDINGS: Multiple view examination of the right elbow demonstrates no soft tissue swelling, joint effusion, or fracture. The osseous structures are in normal alignment. Bony mineralization is normal. CONCLUSION: 1. No acute fracture or dislocation. Dennys Casillas MD on November 09, 2017 at 11:34 Board Certified Radiologist. This report was verified electronically.
[2017-11-09] MEDS ORDERED: IBUP1TAB7 PO (12:37)
[2017-11-09 12:45] VITALS: PULSE 97
== END 2017-11-09 12:59 | disposition home or self-care (01) ==
LOC: NEPD 10:29
DX: S50.01XA Contusion of right elbow, initial encounter (principal); W23.0XXA Caught, crushed, jammed, or pinched between moving objects, initial encounter
CPT/HCPCS: 73080; 99283

== ENCOUNTER 2017-11-30 17:33 | Emergency (ER) | payer MEDICAID ==
[~2017-11-30 17:33] MED LIST changes: -ERYTOIN10 RIGHT EYE; +IBUP1TAB7 PO; -METR1TAB76 PO; -PERM5CRE11 TOPICAL; -POLY10O LEFT EYE
[2017-11-30 17:41] VITALS: BP 147/65; PULSE 95; RESP 18; TEMP 98.9; O2SAT 99
[2017-11-30] MEDS ORDERED: TRIMSOL EACH EYE (18:55)
--- NOTE | 2017-11-30 18:56 | PD ---
HPI Chief Complaint: Eye Problems/Injury Time Seen by Provider: 18:18 Travel History International Travel<30 days: No Contact w/Intl Traveler<30days: No Traveled to known affect area: No History of Present Illness HPI 22-year-old female presents the ED for evaluation of less than 24 hour history of bilateral eye redness, right greater than left. Patient states that she woke up this morning with crusting of the right eye. She endorses jeremy sensation and increased tearing during the course of the day. She denies pain with ocular motions, foreign body sensation, blurred vision, headache. She states that a coworker had pinkeye. She states that she is also had pinkeye in the past and symptoms are very similar to that presentation. She denies sinus congestion, rhinorrhea, ear pain, seasonal allergies. No treatment attempted at home. PFSH Past Medical History Anemia: Yes Asthma: Yes Anxiety: Yes Depression: Yes Heart Rhythm Problems: Yes (murmur) Cardiovascular Problems: Yes (HEART MURMUR) Developmental Delay: No Diminished Hearing: No Immunizations Current: Yes ?: Not : 4 Para: 1 Miscarriage: 1 : 1 Past Surgical History Section: Yes ( ) Gynecologic Surgery: Yes ( ) Family History Family Hypercholesterolemia: Yes Social History Alcohol Use: No Tobacco Use: No Substance Use: No Allergies-Medications (Allergen,Severity, Reaction): Coded Allergies: *MDRO Multi-Drug Resistant Organism (Verified Allergy, Unknown, 11/30/17) MRSA Reported Meds & Prescriptions Reported Meds & Active Scripts Active Polymyxin B-Trimethoprim Opth Drops 10,000-0.1 Unit/Ml-% Soln 1 Drop EACH EYE Q6HR 10 Days Review of Systems Except as stated in HPI: all other systems reviewed are Neg Physical Exam Narrative GENERAL: Well-nourished, well-developed Afro-[place] female no acute distress. SKIN: Warm and dry. HEAD: Normocephalic. Atraumatic. EYES: No scleral icterus. Eyes bilaterally injected, right greater than left. Increased tearing of the right. Small amount of drainage from the medial canthus on the right. PERRLA. EOMI. ENT: Pearly estevez tympanic membranes bilaterally. Nasal mucosa is moist. Oropharynx without erythema, edema or exudate. NECK: Supple, trachea midline. No JVD or lymphadenopathy. CARDIOVASCULAR: Regular rate and rhythm without murmurs, gallops, or rubs. RESPIRATORY: Breath sounds clear and equal bilaterally. No accessory muscle use. GASTROINTESTINAL: Abdomen soft, non-tender, nondistended. + Bowel sounds MUSCULOSKELETAL: No cyanosis, or edema. BACK: Nontender without obvious deformity. No CVA tenderness. Data Data Last Documented VS Vital Signs Date Time Temp Pulse Resp B/P (MAP) Pulse Ox O2 Delivery O2 Flow Rate FiO2 11/30/17 17:41 98.9 95 18 147/65 (92) 99 Orders Orders Ed Discharge Order (11/30/17 18:56) MDM Medical Decision Making Medical Screen Exam Complete: Yes Emergency Medical Condition: Yes Differential Diagnosis Viral conjunctivitis versus bacterial conjunctivitis versus allergic conjunctivitis versus other Narrative Course 22-year-old female presents the ED for evaluation of less than 24 hour history of eye redness, jeremy sensation, increased tearing and crusting of the eyes. Symptoms are bilateral but worse on the right. Patient endorses exposure to coworker with similar symptoms. Vitals reviewed. Physical exam consistent with conjunctivitis. Patient is requesting drops instead of ointment. She is prescribed Polytrim every 6 hours, instructed to follow with the artificial breeding technician , return for worsening symptoms. She indicated understanding the instructions and is agreeable to care plan. The patient is stable and discharged home. Diagnosis Primary Impression: Bilateral conjunctivitis Qualified Codes: H10.33 - Unspecified acute conjunctivitis, bilateral Referrals: [employer] Departure Forms: Tests/Procedures, Work Release Enter return to work date: Dec 02, 2017 Additional Instructions: 1 drop in each eye every 6 hours 10 days. Do not touch the tip the bottle to the eye. Increased the frequency of handwashing. Wash her pillowcases. Disinfect commonly touch household items such as the remote control, light switches, microwave. Follow-up with the artificial breeding technician. Return to the ED for any urgent or emergent medical condition. Med/Other Pt SpecificInfo: Prescription(s) given Scripts Polymyxin B-Trimethoprim Opth Drops (Polymyxin B-Trimethoprim Opth Drops) 10,000 -0.1 Unit/Ml-% Soln 1 DROP EACH EYE Q6HR for Mgmt Bacterial Infection for 10 Days, #1 BOTTLE 0 Refills Prov: Ritu Rodriguez DO 11/30/17 Disposition: 01 DISCHARGE HOME Condition: Stable Gloria Yepez November 30, 2017 18:56
== END 2017-11-30 19:05 | disposition home or self-care (01) ==
LOC: NEPK 17:33
DX: H10.33 Unspecified acute conjunctivitis, bilateral (principal)
CPT/HCPCS: 99283